=== PATIENT | female | born 1955 | race African-American/Black ===

== ENCOUNTER 2022-09-01 14:26 | Outpatient (CLI) | payer MEDICARE | END 2022-09-01 14:27 | disposition home or self-care (01) | LOC: TBSIIMAG 14:26 | PROVIDERS: ATTEND Neurological Surgery | DX: M70.60 Trochanteric bursitis, unspecified hip (principal); M47.816 Spondylosis without myelopathy or radiculopathy, lumbar region | CPT/HCPCS: 72100 ==